=== PATIENT | female | born 1950 | race Caucasian/White ===

== ENCOUNTER 2022-08-07 09:15 | Outpatient (RCR) | payer MEDICARE, OTHER, SELFPAY | END 2022-08-08 08:00 | disposition home or self-care (01) | PROVIDERS: PCP Family Medicine; Visit Provider Family Medicine | DX: M79.644 Pain in right finger(s) (principal); M79.645 Pain in left finger(s); Z51.89 Encounter for other specified aftercare | CPT/HCPCS: 97035; 97110; 97140; 97166; 97530; L3913; X5282 ==

== ENCOUNTER 2024-06-25 07:30 | Outpatient (RCR) | payer MEDICARE, OTHER, SELFPAY | END 2024-10-08 16:39 | disposition home or self-care (01) | PROVIDERS: PCP Family Medicine; Visit Provider Family Medicine | DX: M25.552 Pain in left hip (principal); M25.551 Pain in right hip; H81.12 Benign paroxysmal vertigo, left ear; Z51.89 Encounter for other specified aftercare | CPT/HCPCS: 97110; 97112; 97140; 97162 ==